=== PATIENT | male | born 1975 | race Caucasian/White ===

== ENCOUNTER 2017-08-21 19:34 | Emergency (ER) | payer SELFPAY ==
[2017-08-21 19:36] VITALS: BP 125/76; PULSE 92; RESP 15; TEMP 37.8; BMI 23.1
--- NOTE | 2017-08-21 20:24 | RAD_ITS ---
STUDY: X-RAY CHEST REASON FOR EXAM: Male, 41 years old. Cough TECHNIQUE: PA and lateral COMPARISON: None. FINDINGS: There is coarsening of the bronchovascular markings to the lower lobes bilaterally which may be consistent with bronchitis. There are no focal lobar infiltrates. There is no demonstrated pleural abnormality. Normal size heart. Normal mediastinum and toy. Normal visualized pulmonary arteries. Normal visualized aortic arch and descending thoracic aorta. Normal visualized thoracic spine. Normal visualized ribs, clavicles, and shoulders. There is no demonstrated abnormality of the visualized soft tissue structures of the upper abdomen. RAD/Chest PA and Lateral IMPRESSION: Prominent coarsening of the markings in the lower lobes which may be consistent with bronchitis. Electronically Signed: Octavio Cruz MD at 21:09 EST , Service support ,
--- NOTE | 2017-08-21 21:18 | ED.DCSUM_ITS ---
- ER Visit Summary Date of Service: 08/21/17 Chief Complaint: Cough History of Present Illness: The patient is a 41 M with no primary care physician. Reports he has a cough began 2-1/2 weeks ago. He has had subjective fever, chills, cold sweats. He has had congestion and rhinorrhea. Reports she has a sore throat is 6 out of 10 severity. Patient reports that his cough is productive of green sputum without blood. He has mild shortness of breath and has been wheezing. He does not have an inhaler. She has been allowing his nose for the past 4-5 days. Today he blew his nose and it bled for approximately 45 minutes from the right side. Physical Examination: Vitals: Stable. Afebrile. General: Well-nourished and well-developed. Head: Normocephalic atraumatic. Nose: Ulceration of the nasal septum on the right without active bleeding. Neck: Supple, no lymphadenopathy. No JVD. Nontender. Cardiovascular: Regular rate and rhythm. No murmurs. Respiratory: No respiratory distress. Clear to auscultation bilaterally. Abdominal: Soft, nontender, nondistended, normal bowel sounds. No guarding, rebound, or peritoneal signs. Back: Nontender. Extremities: Nontender, no edema. Skin: Normal color, no rash. Neurologic: Alert and oriented ?3. Cranial nerves II through XII are intact. Normal strength and sensation. Psych: Normal affect. Test Results: Chest x-ray shows no infiltrate. Emergency Department Course and Treatment: Patient refused IV, labs, and testing for influenza. He is resting comfortably. Treatment Plan: He will be discharged with an albuterol MDI. [facility] if not improving. Return to the emergency department for any worsening symptoms. Disposition: To home in improved and stable condition. Impression: 1. URI. This note was generated with [employer] dictation software. It may contain incorrect words, spelling, and punctuation that were not noted in review of the chart prior to signing ED Disposition - Plan for ED Patient: Disposition: Home or Assisted Living Chief Complaint: General Illness Instructions: ED Upper Resp Infec No Abx Tx Prescriptions: Albuterol Inhaler [Ventolin Hfa] 1 - 2 puff INHALATION Q4H PRN PRN #1 inhaler PRN Reason: Wheezing Referrals: Ritu Sanchez [NON-STAFF] - 1 Week if not improving
[2017-08-21 21:31] VITALS: BP 119/72; PULSE 96; RESP 18; O2SAT 97
--- NOTE | 2017-08-21 21:32 | ED.RN ---
REVIEWED D/C INSTRUCTIONS, FOLLOW UP CARE, PRESCRIPTION, AND S/S THAT WOULD WARRANT A RETURN TO THE ED WITH PT. PT VERBALIZED AN UNDERSTANDING AND DENIES FURTHER QUESTIONS FOR THIS RN. PT SKIN P/W/D, RESP EVEN AND UNLABORED, PT A&O X 3, NO DISTRESS NOTED. PT AMBULATED OUT OF ED, GAIT STEADY.
== END 2017-08-21 21:34 | disposition home or self-care (01) ==
PROVIDERS: Emergency Provider Emergency Medicine
DX: J06.9 Acute upper respiratory infection, unspecified (principal); Z72.0 Tobacco use; Z82.5 Family history of asthma and other chronic lower respiratory diseases
CPT/HCPCS: 71046; 99282